=== PATIENT | female | born 1955 | race Caucasian/White ===

== ENCOUNTER 2016-06-09 09:53 | Day surgery (SDC) | payer OTHER ==
[2016-06-09] MEDS ORDERED: LIDOCAINE 1% 2 ML INJ ONE (10:11)
[2016-06-09] MEDS ORDERED: LIDOCAINE 1% 5 ML SDV ID PRN (10:28)
[2016-06-09] MEDS ORDERED: LR 1,000 ML IV ONE (10:28)
[2016-06-09] MEDS ORDERED: PROPOFOL/EMULSION 500 MG/50 ML BOTTLE IV ONE (11:44)
[2016-06-09] MEDS ORDERED: LIDOCAINE 2% 5 ML SDV ONE ×2 (11:44)
[2016-06-09] MEDS ORDERED: ONDANSETRON 4 MG/2 ML VIAL ONE (12:14)
--- NOTE | 2016-06-09 13:07 | GPN ---
[f rep st] PROCEDURE NOTE DATE OF PROCEDURE: 06/09/2016 PROCEDURE: Colonoscopy with excisional biopsy. INDICATION: The patient is a 61-year-old female with history of a complex descending colon polyp which was removed by piecemeal polypectomy who presents for surveillance colonoscopy. CONSENT: Risks, benefits, and alternatives of the procedure were discussed in detail with the patient. Risks of infection, bleeding, perforation, and sedation were discussed. All questions were answered and informed consent was obtained. MEDICATIONS: Propofol. Please see Anesthesia record for. ESTIMATED BLOOD LOSS: Insignificant. COLONOSCOPIC EVALUATION: A rectal exam was done and internal hemorrhoids were appreciated. The Olympus colonoscope was inserted into the rectum and advanced to the cecum where the ileocecal valve and appendiceal orifice were seen. The quality of the prep was good. The colonic mucosa was examined on both insertion and withdrawal of the scope. In the descending colon just proximal to a tattoo brandy, a 2 mm polyp was visualized. It is suspected to be a remnant of polyp. It was removed by excisional biopsy. The patient was also noted to have diverticulosis in the transverse colon, descending, and sigmoid colon. IMPRESSION: 1. Diverticulosis. 2. Small remnant of polyp 2 mm. PLAN: 1. Recommend to follow up on biopsy results. 2. Followup colonoscopy in 2 years due to prior history of complex polyp. /[id number]/MODL MTDD
== END 2016-06-09 13:38 | disposition home or self-care (01) ==
LOC: FSGY 09:53
PROVIDERS: ATTEND Internal Medicine Gastroenterology
PROC: 0DBM8ZX Excision of Descending Colon, Via Natural or Artificial Opening Endoscopic, Diagnostic (ICD-10-PCS; principal; 2016-06-09 11:45)
DX: D12.6 Benign neoplasm of colon, unspecified (principal); K57.30 Diverticulosis of large intestine without perforation or abscess without bleeding; K64.8 Other hemorrhoids; I10 Essential (primary) hypertension; Z86.010 Personal history of colon polyps
CPT/HCPCS: J2405; J2704